=== PATIENT | male | born 2000 | race Caucasian/White ===

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

== ENCOUNTER 2020-01-21 16:26 | Emergency (ER) | payer SELFPAY ==
[2020-01-21 16:43] VITALS: BP 109/67
== END 2020-01-21 19:15 | disposition left against medical advice (07) ==
LOC: ED 16:26
DX: M54.2 Cervicalgia (principal); Z53.21 Procedure and treatment not carried out due to patient leaving prior to being seen by health care provider